=== PATIENT | female | born 1955 | race Caucasian/White ===

== ENCOUNTER 2020-05-16 09:17 | Inpatient (IN) ==
[2020-05-16] MEDS ORDERED: *HR* Magnesium Sulfate 1 GM/2 ML VIAL ONE (09:26)
[2020-05-16] MEDS ORDERED: Lidocaine -MPF 4% 5 ML AMPUL ONE (09:30)
[2020-05-16] MEDS ORDERED: CeFAZolin Syr 2,000MG/20 ML 2,000 MG/20 ML SYRINGE IVPB ONE (09:36)
[2020-05-16] MEDS ORDERED: *HR* HYDROMORPHONE 2 MG/ML VIAL ONE (09:38)
[2020-05-16] MEDS ORDERED: *HR* FentaNYL (PF) 100 MCG/2 ML VIAL ONE (09:38)
[2020-05-16] MEDS ORDERED: *HR* Midazolam HCl 2 MG/2 ML VIAL ONE (09:38)
[2020-05-16] MEDS ORDERED: Sugammadex Sodium 200 MG/2 ML VIAL IV ONE ×2 (09:39→13:27)
[2020-05-16] MEDS ORDERED: *HR* Rocuronium Bromide 50 MG/5 ML VIAL ONE ×2 (09:39→12:53)
[2020-05-16] MEDS ORDERED: Ondansetron 4 MG/2 ML VIAL ONE (09:39)
[2020-05-16] MEDS ORDERED: Dexamethasone 4 MG/ML VIAL ONE (09:39)
[2020-05-16] MEDS ORDERED: Lidocaine -MPF 2% 2 ML VIAL ONE (09:39)
[2020-05-16] MEDS ORDERED: Ringers Solution, Lactated 1,000 ML IVC SCH ×2 (09:45→10:15)
[2020-05-16] MEDS ORDERED: Ondansetron 4 MG/2 ML VIAL IVP PRN ×2 (10:10→14:40)
[2020-05-16] MEDS ORDERED: *HR* OxyCODONE Immed Rel 5 MG TABLET PO PRN (10:10)
[2020-05-16] MEDS ORDERED: Acetaminophen IV 1,000 MG/100 ML BAG IVPB ONE (10:53)
[2020-05-16] MEDS ORDERED: EPHEDrine 50 MG/ML VIAL ONE (12:03)
[2020-05-16] MEDS ORDERED: *HR* PHENYLEPHRINE 1,000 MCG/10 ML SYRINGE IVP ONE (12:41)
[2020-05-16] MEDS: *HR* HYDROmorphone PF 0.5 MG/0.5 ML SYRINGE IVP PRN ×4 (13:35→13:55)
[2020-05-16] MEDS ORDERED: *HR* HYDROcodone/Acet 5/325 mg TABLET PO PRN (14:40)
[2020-05-16] MEDS ORDERED: Naloxone 0.4 MG/ML INJ IVP PRN (14:40)
[2020-05-16] MEDS: Gabapentin 300 MG CAPSULE PO SCH ×2 (15:14→20:35)
[2020-05-16] MEDS: 0.9 % Sodium Chloride 1,000 ML IVC SCH (15:19)
[2020-05-16] MEDS: *HR* Heparin 5,000 UNIT/ML VIAL SQ SCH ×2 (15:20→20:35)
[2020-05-16] MEDS: Ipratropium/Albuterol Neb 3 ML IH SCH ×3 (15:29→23:04)
[2020-05-16] MEDS: Ketorolac 15 MG/ML VIAL IVP SCH ×2 (17:03→22:54)
[2020-05-16] MEDS: Sennosides/Docusate Sodium TABLET PO SCH (20:34)
[2020-05-16] MEDS: Famotidine 20 MG TABLET PO SCH (20:35)
[2020-05-17 01:21] LABS: Hematocrit 34.5 % (35.3-44.9); Hemoglobin 11.7 g/dL (11.5-15.4); Mean Corpuscular HGB Conc 33.9 g/dL (31.6-35.5); Mean Corpuscular Hemoglobin 33.8 pg (28.0-33.3); Mean Corpuscular Volume 99.7 fL (83.0-100.0); Mean Platelet Volume 10.6 fL (9.4-12.4); Platelet Count 201 K/mcL (140-400); Red Blood Count 3.46 M/mcL (3.82-4.97); Red Cell Distribution Width 12.2 % (11.5-14.5); White Blood Count 12.5 K/mcL (4.3-11.1)
[2020-05-17 01:35] LABS: % Iron Saturation 4 % (15-50); BUN/Creatinine Ratio 17 (6-26); Blood Urea Nitrogen 10 mg/dL (8-23); Calcium 8.7 mg/dL (8.6-10.3); Carbon Dioxide 21 mEq/L (23-29); Chloride 107 mEq/L (98-107); Glucose 160 mg/dL (70-105); Iron 13 mcg/dL (50-170); Magnesium 2.3 mg/dL (1.6-2.6); Osmolality,Calculated 286 (280-300); Potassium 3.9 mEq/L (3.5-5.1); Sodium 137 mEq/L (136-145); Transferrin 231 mg/dL (203-362); eGFR For African Americans > 60 (> 60); eGFR For Non-African Americans > 60 (> 60)
[2020-05-17] MEDS: 0.9 % Sodium Chloride 1,000 ML IVC SCH (02:57)
[2020-05-17] MEDS: Ipratropium/Albuterol Neb 3 ML IH SCH ×6 (03:48→22:52)
[2020-05-17] MEDS: Ketorolac 15 MG/ML VIAL IVP SCH ×3 (05:10→17:45)
[2020-05-17] MEDS: *HR* Heparin 5,000 UNIT/ML VIAL SQ SCH ×3 (05:10→20:11)
[2020-05-17] MEDS: Gabapentin 300 MG CAPSULE PO SCH ×3 (08:29→20:09)
[2020-05-17] MEDS: Sennosides/Docusate Sodium TABLET PO SCH ×2 (08:29→20:10)
[2020-05-17] MEDS: Famotidine 20 MG TABLET PO SCH ×2 (08:29→20:10)
[2020-05-17] MEDS: Nicotine 21 MG PATCH.TD24 TD SCH (08:29)
[2020-05-17] MEDS ORDERED: Thiamine (B-1) 100 MG in 0.9 % Sodium Chloride 50 ML IVPB ONE (11:26)
[2020-05-17] MEDS ORDERED: Folic Acid 1 MG in 0.9 % Sodium Chloride 50 ML IVPB ONE (11:26)
[2020-05-18] MEDS: Ketorolac 15 MG/ML VIAL IVP SCH ×4 (00:45→18:16)
[2020-05-18] MEDS: *HR* Heparin 5,000 UNIT/ML VIAL SQ SCH ×3 (05:37→20:12)
[2020-05-18] MEDS: Ipratropium/Albuterol Neb 3 ML IH SCH ×6 (05:54→22:43)
[2020-05-18] MEDS: Famotidine 20 MG TABLET PO SCH ×2 (08:27→20:12)
[2020-05-18] MEDS: Nicotine 21 MG PATCH.TD24 TD SCH (08:27)
[2020-05-18] MEDS: Gabapentin 300 MG CAPSULE PO SCH ×3 (08:27→20:12)
[2020-05-18] MEDS: Sennosides/Docusate Sodium TABLET PO SCH ×2 (08:27→20:12)
[2020-05-19 01:14] LABS: Hematocrit 31.1 % (35.3-44.9); Hemoglobin 10.4 g/dL (11.5-15.4); Mean Corpuscular HGB Conc 33.4 g/dL (31.6-35.5); Mean Corpuscular Hemoglobin 33.3 pg (28.0-33.3); Mean Corpuscular Volume 99.7 fL (83.0-100.0); Platelet Count 211 K/mcL (140-400); Red Blood Count 3.12 M/mcL (3.82-4.97); Red Cell Distribution Width 12.3 % (11.5-14.5); White Blood Count 9.7 K/mcL (4.3-11.1)
[2020-05-19 01:32] LABS: BUN/Creatinine Ratio 13 (6-26); Blood Urea Nitrogen 8 mg/dL (8-23); Calcium 8.9 mg/dL (8.6-10.3); Carbon Dioxide 28 mEq/L (23-29); Chloride 106 mEq/L (98-107); Glucose 112 mg/dL (70-105); Magnesium 2.2 mg/dL (1.6-2.6); Osmolality,Calculated 291 (280-300); Potassium 3.4 mEq/L (3.5-5.1); Sodium 141 mEq/L (136-145); eGFR For African Americans > 60 (> 60); eGFR For Non-African Americans > 60 (> 60)
[2020-05-19] MEDS: Ketorolac 15 MG/ML VIAL IVP SCH ×4 (02:26→15:02)
[2020-05-19] MEDS: Ipratropium/Albuterol Neb 3 ML IH SCH ×6 (03:30→23:14)
[2020-05-19] MEDS: *HR* Heparin 5,000 UNIT/ML VIAL SQ SCH ×3 (04:55→20:41)
[2020-05-19] MEDS: Nicotine 21 MG PATCH.TD24 TD SCH (07:46)
[2020-05-19] MEDS: Famotidine 20 MG TABLET PO SCH ×2 (07:46→20:41)
[2020-05-19] MEDS: Gabapentin 300 MG CAPSULE PO SCH ×3 (07:46→20:41)
[2020-05-19] MEDS: Sennosides/Docusate Sodium TABLET PO SCH ×2 (07:46→20:41)
[2020-05-19] MEDS ORDERED: Furosemide 20 MG TABLET PO ONE (09:00)
[2020-05-19] MEDS: Metoprolol XL (24 HR) Succ 25 MG TAB.ER.24H PO SCH (11:42)
[2020-05-20] MEDS: Ketorolac 15 MG/ML VIAL IVP SCH ×3 (00:21→16:29)
[2020-05-20] MEDS: Ipratropium/Albuterol Neb 3 ML IH SCH ×4 (03:23→15:36)
[2020-05-20] MEDS: *HR* Heparin 5,000 UNIT/ML VIAL SQ SCH ×2 (06:27→16:29)
[2020-05-20] MEDS: Sennosides/Docusate Sodium TABLET PO SCH (08:19)
[2020-05-20] MEDS: Metoprolol XL (24 HR) Succ 25 MG TAB.ER.24H PO SCH (08:19)
[2020-05-20] MEDS: Famotidine 20 MG TABLET PO SCH (08:19)
[2020-05-20] MEDS: Gabapentin 300 MG CAPSULE PO SCH ×2 (08:19→16:31)
[2020-05-20] MEDS: Nicotine 21 MG PATCH.TD24 TD SCH (08:20)
[2020-05-20 11:19] VITALS: BP 146/85
== END 2020-05-20 17:43 | disposition home or self-care (01) | DRG 121 ==
LOC: SAMDAY 09:17 → 2NNU 14:24
PROVIDERS: ADMIT Thoracic Surgery (Cardiothoracic Vascular Surgery); ATTEND Thoracic Surgery (Cardiothoracic Vascular Surgery)